=== PATIENT | female | born 1965 | race African-American/Black ===

== ENCOUNTER 2016-06-27 13:46 | Emergency (ER) | payer MEDICARE, OTHER ==
[~2016-06-27 13:46] MED LIST: AMLO10TA4 PO; CARV25TA2 PO; CLON0.2T PO; CLON1TAB3 PO; CYCL10TA2 PO; FURO20TA3 PO; HYDR-2680 PO; HYDR50TA6 PO; LISI-334 PO; LURA40TA PO; POTA10CA PO; TRAZ100T12 PO
--- NOTE | 2016-06-27 15:27 | PHYS DOC ---
Past Medical History Past Medical History: Arthritis, Hypertension, Seizure, Other Additional Past Medical Histor: EPILEPSY,PAGET'S DISEASE, cardiomegaly Past Surgical History: Hysterectomy, Other Additional Past Surgical Histo: GASTRIC BYPASS,TUBAL Additional Information: Nonsmoker Alcohol Use: None Drug Use: None Adult General Chief Complaint Chief Complaint: DENTAL PROBLEM HPI HPI Patient is a 50 year old female who presents with left mandibular dental pain for 1 week. She states that she began to have swelling with increased pain last night. She has also had URI symptoms including sore throat, nasal congestion, bilateral ear pain, productive cough, and fever up to 100F. She denies any difficulty breathing. She states that she is having difficulty swallowing, however is not having difficulty tolerating oral secretions and is drinking a fountain soda in the room. Upon arrival to the emergency department, her blood pressure is markedly elevated. She takes multiple medications for her blood pressure. She has not yet taken her lisinopril today, however has taken her Coreg and Lasix today. She denies any chest pain, shortness of breath, headache , vision changes, or lateralizing neurologic deficits. She does not have a PCP. Review of Systems Review of Systems Constitutional: Reports fever. Eyes: Denies change in visual acuity, redness, or eye pain. [] HENT: Reports bilateral ear pain, nasal congestion, sore throat, and dental pain with swelling. Respiratory: Denies shortness of breath. Reports productive cough. Cardiovascular: Denies chest pain, palpitations or edema. [] Musculoskeletal: Denies back pain or joint pain. [] Integument: Denies rash or skin lesions. [] Neurologic: Denies headache, focal weakness or sensory changes. [] All systems reviewed and negative unless otherwise stated in the HPI. Current Medications Current Medications Current Medications Medications (Trade) Dose Ordered Sig/Oliver Start Time Stop Time Status Last Admin Dose Admin Clonidine HCl (Catapres) 0.2 mg 1X ONCE 06/27/16 16:45 06/27/16 16:47 DC 06/27/16 17:02 0.2 MG Lisinopril (Prinivil) 10 mg 1X ONCE 06/27/16 16:45 2 16:47 DC 06/27/16 17:49 10 MG Oxycodone/ Acetaminophen (Percocet 5/325) 1 tab 1X ONCE 06/27/16 16:45 2/10/17 16:47 DC 06/27/16 17:04 1 TAB Allergies Allergies Allergies Coded Allergies Type Severity Reaction Last Updated Verified Latex, Natural Rubber Allergy Intermediate RASH 09/21/15 Yes adhesive tape Allergy Intermediate RASH 09/21/15 Yes Physical Exam Physical Exam Constitutional: Well developed, well nourished, no acute distress, non-toxic appearance. [] HENT: Normocephalic, atraumatic, bilateral external ears normal, oropharynx moist, no oral exudates, nose normal. Bilateral TMs without erythema or bulging. There is no posterior pharyngeal erythema. There is mild bilateral tonsillar edema without peritonsillar abscess or uvular deviation. Bilateral nasal turbinates are swollen and erythematous with purulent drainage. There is tenderness over the left mandibular teeth without obvious caries or dental fracture. There is no gingival edema or dental abscess seen. Eyes: PERRLA, EOMI, conjunctiva normal, no discharge. [] Neck: Normal range of motion, no tenderness, supple, no stridor. [] Cardiovascular: Heart rate regular rhythm, no murmur [] Lungs & Thorax: Bilateral breath sounds clear to auscultation without wheezes, rales, or rhonchi. Skin: Warm, dry, no erythema, no rash. [] Neurologic: Alert and oriented X 3, normal motor function, normal sensory function, no focal deficits noted. [] Psychologic: Affect normal, judgement normal, mood normal. [] Current Patient Data Vital Signs Vital Signs Date Time Temp Pulse Resp B/P Pulse Ox O2 Delivery O2 Flow Rate FiO2 06/27/16 17:50 151/97 06/27/16 17:04 20 97 Room Air 06/27/16 17:02 64 06/27/16 15:11 98.4 98.4 Lab Values Laboratory Tests Test 06/27/16 15:15 Influenza Type A Antigen Negative (NEGATIVE) Influenza Type B Antigen Negative (NEGATIVE) EKG EKG [] Radiology/Procedures Radiology/Procedures [] Course & Med Decision Making Course & Med Decision Making Pertinent Labs and Imaging studies reviewed. (See chart for details) Rapid strep negative. The patient is a 50-year-old female who presents with left mandibular dental pain and swelling as well as URI symptoms. Upon arrival to the emergency department, her blood pressure is markedly elevated. She takes multiple medications for her hypertension and reports that her blood pressures average 180/90 at home with her medications. She did not take her lisinopril today. She states that her blood pressure is always elevated when she is in pain. She often can feel her elevated blood pressure with headaches. She denies any chest pain, shortness of breath, headache, vision changes, or neurologic deficits. Patient's blood pressure initially was 224/132. Her pressure then decreased to 160/121 without intervention. Prior to planned discharge, her blood pressure donnell again to 228/110. Patient course was discussed with Dr. Jama. Patient was given her home lisinopril dose as well as clonidine and Percocet in the emergency department. Recheck of her blood pressure was then 151/97. She continued to deny any chest pain, shortness of breath, headache, vision changes , or neurologic deficits. She has a blood pressure cuff and reports that she checks her blood pressure 5-6 times daily. She is instructed to continue to monitor her blood pressure closely. She is also to take all of her home medications as directed. She is instructed to follow-up with PCP in the next 2- 3 days. Return precautions were discussed, including chest pain, shortness of breath, headache, vision changes, or neurologic deficits. The patient verbalizes understanding and agrees with plan. She is discharged home in stable condition with prescriptions for penicillin and [place] for her dental pain and an albuterol inhaler for her cough. Dragon Disclaimer Dragon Disclaimer This electronic medical record was generated, in whole or in part, using a voice recognition dictation system. Departure Departure Impression: Primary Impression: Dentalgia Additional Impressions: URI (upper respiratory infection) Hypertension Disposition: 01 HOME, SELF-CARE Condition: STABLE Referrals: NO PCP (PCP) Patient Instructions: Dental Pain, [id number], Upper Respiratory Infection, Adult, [id number] Additional Instructions: Your flu and strep tests were negative today. Please monitor your blood pressure at home. Please take your regular medications as instructed. Please complete all of the prescribed antibiotics for your tooth, even if it is feeling better. Please take the prescribed pain medication as directed. Do not drive or operate heavy machinery while taking pain medication. Please follow up with the dentist of your choice for your dental pain. Return to the emergency department if you have chest pain, shortness of breath, dizziness, vision changes, weakness or numbness, or other new or concerning symptoms. Scripts Albuterol Sulfate (Proair Hfa Inhaler)8.5 Gm Hfa.[id number].ad1 Puff INH Q4HRS PRN SHORTNESS OF BREATH #1 INHALER Prov:RUTH MUNROE 06/27/16 Hydrocodone/Apap 5-325 ([place] 5-325 Tablet)1 Each Tablet1 Tab PO PRN Q6HRS PRN PAIN #20 TAB Prov:RUTH MUNROE 06/27/16 Penicillin V Potassium 500 Mg Tablet1 Tab PO TID #30 TAB Prov:RUTH MUNROE 06/27/16 Problem Qualifiers Additional Impressions: URI (upper respiratory infection) URI type: unspecified viral URI Qualified Code: J06.9 - Acute upper respiratory infection, unspecified Hypertension Hypertension type: essential hypertension Qualified Code: I10 - Essential ( primary) hypertension RUTH MUNROE Jun 27, 2016 15:27
[2016-06-27 16:13] LABS: OBC FLU VALID
[2016-06-27] MEDS ORDERED: HYDR-971 PO (16:28)
[2016-06-27] MEDS ORDERED: PENI500T PO (16:28)
[2016-06-27] MEDS ORDERED: PROAIR HFA8.5 GM INH (16:28)
[2016-06-27] MEDS ORDERED: CLONIDINE HCL 0.1 MG TABLET PO ONE (16:45)
[2016-06-27] MEDS ORDERED: OXYCODONE/APAP 5/325 TABLET. PO ONE (16:45)
[2016-06-27] MEDS ORDERED: LISINOPRIL 10 MG TABLET PO ONE (16:45)
[2016-06-27 17:50] VITALS: BP 151/97
[2016-06-28 08:53] LABS: NEGATIVE OBC STREP NEG; POSITIVE OBC STREP POS
== END 2016-06-27 18:05 | disposition home or self-care (01) ==
LOC: ER 13:46
DX: J06.9 Acute upper respiratory infection, unspecified (principal); K08.89 Other specified disorders of teeth and supporting structures; I10 Essential (primary) hypertension; M19.90 Unspecified osteoarthritis, unspecified site; Z90.710 Acquired absence of both cervix and uterus; Z98.890 Other specified postprocedural states; Z88.8 Allergy status to other drugs, medicaments and biological substances; Z91.040 Latex allergy status
CPT/HCPCS: 87070; 87804; 87880; 99284

== ENCOUNTER 2018-01-15 15:48 | Emergency (ER) | payer MEDICARE, OTHER ==
[~2018-01-15 15:48] MED LIST changes: -CLON1TAB3 PO; +CLON1TAB4 PO; +HYDR-971 PO; +PENI500T PO; -POTA10CA PO; +POTA10TA12 PO; +PROAIR HFA8.5 GM INH; +TRAZ-86 PO; -TRAZ100T12 PO
== END 2018-01-15 17:38 | disposition left against medical advice (07) ==
LOC: ER 15:48
DX: R42 Dizziness and giddiness (principal); Z53.21 Procedure and treatment not carried out due to patient leaving prior to being seen by health care provider

== ENCOUNTER 2018-01-15 18:37 | Emergency (ER) | payer MEDICARE ==
[~2018-01-15] VITALS: Ht 160 cm; Wt 89.8 kg
[2018-01-15 19:00] VITALS: BP 128/75
[2018-01-15] MEDS ORDERED: ASPIRIN CHEWABLE 81 MG TABLET. PO ONE (20:00)
[2018-01-15] MEDS ORDERED: IV NORMAL SALINE 1000ML BAG 1,000 ML IV ONE (20:00)
[2018-01-15 20:04] LABS: BASO # 0.1 x10^3/uL (0.0-0.2); BASO % 1 % (0-3); EOS # 0.2 x10^3/uL (0.0-0.7); EOS % 4 % (0-3); HEMATOCRIT 39.2 % (36.0-47.0); HEMOGLOBIN 13.4 g/dL (12.0-15.5); LYMPH # 2.5 x10^3/uL (1.0-4.8); LYMPH % 48 % (24-48); MEAN CORPUSCULAR HEMOGLOBIN 36 pg (25-35); MEAN CORPUSCULAR HGB CONC 34 g/dL (31-37); MEAN CORPUSCULAR VOLUME 103 fL (79-100); MONO # 0.5 x10^3/uL (0.0-1.1); MONO % 9 % (0-9); NEUT % 38 % (31-73); PLATELET COUNT 319 x10^3/uL (140-400); RED BLOOD COUNT 3.79 x10^6/uL (3.50-5.40); RED CELL DISTRIBUTION WIDTH 16.2 % (11.5-14.5); WHITE BLOOD COUNT 5.3 x10^3/uL (4.0-11.0)
[2018-01-15 20:13] LABS: PROTHROMBIN TIME PATIENT 13.8 SEC (11.7-14.0)
[2018-01-15 20:16] LABS: CALCIUM 8.9 mg/dL (8.5-10.1); CREATININE 1.3 mg/dL (0.6-1.0); POTASSIUM 3.7 mmol/L (3.5-5.1)
[2018-01-15 20:23] LABS: ALBUMIN 3.6 g/dL (3.4-5.0); ALBUMIN/GLOBULIN RATIO 0.9 (1.0-1.7); MAGNESIUM 1.8 mg/dL (1.8-2.4); TOTAL BILIRUBIN 0.3 mg/dL (0.2-1.0); TOTAL PROTEIN 7.8 g/dL (6.4-8.2)
--- NOTE | 2018-01-15 20:33 | RAD ---
PQRS Compliance statement: One or more of the following individualized dose reduction techniques were utilized for this examination: 1. Automated exposure control. 2. Adjustment of the mA and/or kV according to patient size. 3. Use of iterative reconstruction technique. Indication:ZHOU HTN PREV SENT TECHNIQUE: CT head without IV contrast COMPARISON:09/21/2015 FINDINGS: No pathologic extra-axial or intra-axial fluid collection. The ventricles and basal cisterns are within normal limits. No acute intracranial bleed. Mild periventricular low-attenuation of the right matter noted. No focal loss of patel-white differentiation. Orbits are within normal limits. No suspicious calvarial lesions. Visualized paranasal sinuses and mastoid air cells are clear. IMPRESSION: No acute intracranial process. If concern for acute ischemic stroke is high, please consider MRI brain. 2. Mild white matter changes likely secondary to chronic microvascular ischemic disease. Electronically signed by: Reuben Whitley DO (01/15/2018 8:30 PM) [facility]
--- NOTE | 2018-01-15 20:50 | PHYS DOC ---
Past Medical History Past Medical History: Arthritis, Hypertension, Seizure, Other Additional Past Medical Histor: EPILEPSY,PAGET'S DISEASE, cardiomegaly Past Surgical History: Hysterectomy, Other Additional Past Surgical Histo: GASTRIC BYPASS,TUBAL Alcohol Use: None Drug Use: None Adult General Chief Complaint Chief Complaint: DIZZY/LIGHT HEADED HPI HPI 52-year-old female presents with several day history of concern over elevated blood pressure. Patient reports she has been taking her medication recently. Reports normally follows with [facility] who has been adjusting her medication. Patient reports she recently moved closer to [place] and therefore wants to change physicians. Reports associated headache. Denies trauma. Denies fever/chills. Review of Systems Review of Systems Constitutional: Denies fever or chills; reports malaise Eyes: Denies change in visual acuity, redness, or eye pain [] HENT: Denies nasal congestion or sore throat [] Respiratory: Denies cough or shortness of breath [] Cardiovascular: Denies chest pain or palpitations GI: Denies abdominal pain, nausea, vomiting, or diarrhea [] : Denies dysuria or hematuria [] Musculoskeletal: Denies back pain or joint pain [] Integument: Denies rash or skin lesions [] Neurologic: Reports headache; denies focal weakness or sensory changes [] Complete systems were reviewed and found to be within normal limits, except as documented in this note. Current Medications Current Medications Current Medications Medications (Trade) Dose Ordered Sig/Oliver Start Time Stop Time Status Last Admin Dose Admin Aspirin (Children'S Aspirin) 324 mg 1X ONCE 01/15/18 20:00 01/15/18 20:01 DC 01/15/18 20:23 324 MG Sodium Chloride 1,000 ml @ 1,000 mls/hr 1X ONCE 01/15/18 20:00 01/15/18 20:59 DC 01/15/18 20:23 1,000 MLS/HR Allergies Allergies Allergies Coded Allergies Type Severity Reaction Last Updated Verified Latex, Natural Rubber Allergy Intermediate RASH 09/21/15 Yes adhesive tape Allergy Intermediate RASH 09/21/15 Yes Physical Exam Physical Exam Constitutional: Well developed, well nourished, no acute distress, non-toxic appearance. [] HENT: Normocephalic, atraumatic, oropharynx moist Eyes: PERRL, EOMI, conjunctiva normal, no discharge. [] Neck: Normal range of motion, no tenderness, supple, no meningeal signs Cardiovascular: Heart rate regular rhythm, no edema Lungs & Thorax: Bilateral breath sounds clear to auscultation [] Abdomen: Soft, no tenderness Skin: Warm, dry, no erythema, no rash. [] Back: No tenderness, no CVA tenderness. [] Extremities: No tenderness, ROM intact, no edema. [] Neurologic: Alert and oriented X 3, normal motor function, normal sensory function, no focal deficits noted. Cerebellar function intact Psychologic: Affect normal, judgement normal, anxious mood Current Patient Data Vital Signs Vital Signs Date Time Temp Pulse Resp B/P (MAP) Pulse Ox O2 Delivery O2 Flow Rate FiO2 01/15/18 19:00 97.7 95 18 128/75 (92) Room Air 97.7 Lab Values Laboratory Tests Test 01/15/18 19:53 White Blood Count 5.3 x10^3/uL (4.0-11.0) Red Blood Count 3.79 x10^6/uL (3.50-5.40) Hemoglobin 13.4 g/dL (12.0-15.5) Hematocrit 39.2 % (36.0-47.0) Mean Corpuscular Volume 103 fL (79-100) H Mean Corpuscular Hemoglobin 36 pg (25-35) H Mean Corpuscular Hemoglobin Concent 34 g/dL (31-37) Red Cell Distribution Width 16.2 % (11.5-14.5) H Platelet Count 319 x10^3/uL (140-400) Neutrophils (%) (Auto) 38 % (31-73) Lymphocytes (%) (Auto) 48 % (24-48) Monocytes (%) (Auto) 9 % (0-9) Eosinophils (%) (Auto) 4 % (0-3) H Basophils (%) (Auto) 1 % (0-3) Neutrophils # (Auto) 2.0 x10^3uL (1.8-7.7) Lymphocytes # (Auto) 2.5 x10^3/uL (1.0-4.8) Monocytes # (Auto) 0.5 x10^3/uL (0.0-1.1) Eosinophils # (Auto) 0.2 x10^3/uL (0.0-0.7) Basophils # (Auto) 0.1 x10^3/uL (0.0-0.2) Prothrombin Time 13.8 SEC (11.7-14.0) Prothrombin Time INR 1.1 (0.8-1.1) PTT 28 SEC (24-38) Sodium Level 139 mmol/L (136-145) Potassium Level 3.7 mmol/L (3.5-5.1) Chloride Level 105 mmol/L (98-107) Carbon Dioxide Level 25 mmol/L (21-32) Anion Gap 9 (6-14) Blood Urea Nitrogen 11 mg/dL (7-20) Creatinine 1.3 mg/dL (0.6-1.0) H Estimated GFR (Cockcroft-Gault) 52.0 BUN/Creatinine Ratio 8 (6-20) Glucose Level 83 mg/dL (70-99) Calcium Level 8.9 mg/dL (8.5-10.1) Magnesium Level 1.8 mg/dL (1.8-2.4) Total Bilirubin 0.3 mg/dL (0.2-1.0) Aspartate Amino Transferase (AST) 25 U/L (15-37) Alanine Aminotransferase (ALT) 23 U/L (14-59) Alkaline Phosphatase 59 U/L (46-116) Creatine Kinase 118 U/L (26-192) Creatine Kinase MB (Mass) 1.2 ng/mL (0.0-3.6) Creatine Kinase MB Relative Index 1.0 % (0-4) Troponin I Quantitative < 0.017 ng/mL (0.000-0.055) Total Protein 7.8 g/dL (6.4-8.2) Albumin 3.6 g/dL (3.4-5.0) Albumin/Globulin Ratio 0.9 (1.0-1.7) L Lipase 160 U/L (73-393) Laboratory Tests 01/15/18 19:53 Laboratory Tests 01/15/18 19:53 EKG EKG @2008 at 01/15/18 at 85bpm, Q wave III, NO ST elevation Radiology/Procedures Radiology/Procedures PROCEDURE: CT HEAD WO CONTRAST PQRS Compliance statement: One or more of the following individualized dose reduction techniques were utilized for this examination: 1. Automated exposure control. 2. Adjustment of the mA and/or kV according to patient size. 3. Use of iterative reconstruction technique. Indication:ZHOU HTN PREV SENT TECHNIQUE: CT head without IV contrast COMPARISON:09/21/2015 FINDINGS: No pathologic extra-axial or intra-axial fluid collection. The ventricles and basal cisterns are within normal limits. No acute intracranial bleed. Mild periventricular low-attenuation of the right matter noted. No focal loss of patel-white differentiation. Orbits are within normal limits. No suspicious calvarial lesions. Visualized paranasal sinuses and mastoid air cells are clear. IMPRESSION: No acute intracranial process. If concern for acute ischemic stroke is high, please consider MRI brain. 2. Mild white matter changes likely secondary to chronic microvascular ischemic disease. Course & Med Decision Making Course & Med Decision Making Pertinent Labs and Imaging studies reviewed. (See chart for details) Patient presents with report of dizziness and headache with concern for elevated blood pressure. Patient reports taking her blood pressure medication prior to arrival. Blood pressure stable upon arrival. Orthostatic vital signs stable. Patient neurologically intact. EKG stable. Labs obtained and posted to chart. No end organ damage appreciated. CT head without acute process. UA initially ordered but patient reports unable to provide sample. Denies dysuria or urinary frequency/urgency. Patient stable for discharge with outpatient follow-up with PCP. Discussed findings and plan with patient and family, who acknowledge understanding and agreement. Dragon Disclaimer Dragon Disclaimer This electronic medical record was generated, in whole or in part, using a voice recognition dictation system. Departure Departure Impression: Primary Impression: Headache Additional Impression: History of hypertension Disposition: HOME, SELF-CARE Condition: IMPROVED Referrals: NO PCP (PCP) Patient Instructions: Headache, FAQs, Hypertension, [id number] Problem Qualifiers Primary Impression: Headache Headache type: unspecified Headache chronicity pattern: unspecified pattern Intractability: not intractable Qualified Codes: R51 - Headache DOMINICK CHAVEZ DO Jan 15, 2018 20:50
--- NOTE | 2018-01-16 12:41 | EKG ---
[facility] [address] [place] [address] Test Date: 2018-01-15 Test Time: 20:09:11 Pat Name: GONZALES OCE Department: Room: Gender: Female Sccm Administrator: : 1965 Requested By: DOMINICK CHAVEZ Order Number: [id number] Reading MD: Elliot Spain MD Measurements Intervals [place] Rate: 85 P: 41 OK: 154 QRS: -4 QRSD: 94 T: 58 QT: 364 QTc: 439 Interpretive Statements SINUS RHYTHM Electronically Signed On 01-19-2018 11:57:48 CDT by Elliot Spain MD
== END 2018-01-15 21:31 | disposition home or self-care (01) ==
LOC: ER 18:37
DX: I10 Essential (primary) hypertension (principal); R51 Headache; G40.909 Epilepsy, unspecified, not intractable, without status epilepticus; Z90.710 Acquired absence of both cervix and uterus; Z98.84 Bariatric surgery status; Z88.8 Allergy status to other drugs, medicaments and biological substances; Z91.040 Latex allergy status
CPT/HCPCS: 36415; 70450; 80053; 82553; 83690; 83735; 84484; 85025; 85610; 85730; 93005; 96360; 99285; J7030